=== PATIENT | male | born 1995 | race Caucasian/White ===

== ENCOUNTER 2018-09-17 19:58 | Emergency (ER) | payer SELFPAY ==
[2018-09-17 20:31] LABS: Absolute Lymphocytes (CBC) 2.9 K/uL (0.7-4.9); Absolute Monocytes 0.7 K/uL (0.1-1.3); Basophils % 0.9 % (0-1.3); Eosinophils % 1.6 % (0-4.4); Hematocrit 41.7 % (39.6-49.0); Lymphocytes % 32.9 % (15.3-44.8); MPV 8.4 fL (7.6-11.3); RBC Red Blood Cell Count 4.75 M/uL (4.33-5.43)
[2018-09-17 21:07] LABS: Barbiturates NEGATIVE (NEGATIVE); Benzodiazepines NEGATIVE (NEGATIVE); Cocaine NEGATIVE (NEGATIVE); METHAMPHETAM NEGATIVE (NEGATIVE); Methadone NEGATIVE (NEGATIVE); Opiates NEGATIVE (NEGATIVE); Phencyclidine NEGATIVE (NEGATIVE); THC Cannibis NEGATIVE (NEGATIVE)
--- NOTE | 2018-09-17 21:21 | RAD REPORT ---
EXAM DESCRIPTION: Frances Single View09/17/2018 8:39 pm CLINICAL HISTORY: Chest pain COMPARISON: none FINDINGS: The lungs appear clear of acute infiltrate. The heart is normal size IMPRESSION: No acute abnormalities displayed
[2018-09-17 22:00] LABS: Urine Blood NEGATIVE (NEG); Urine Glucose NEGATIVE (NEG); Urine Protein NEGATIVE (NEG); Urine pH 5.5 (5.0-7.0)
[2018-09-17 22:34] LABS: Protime INR 1.03
[2018-09-17 22:45] LABS: ALT/SGPT 42 U/L (12-78); AST/SGOT 30 U/L (15-37); Alkaline Phosphatase 53 U/L (45-117); BUN Blood Urea Nitrogen 21 mg/dL (7-18); Bicarbonate 23 mmol/L (21-32); Bilirubin Direct 0.1 mg/dL (0-0.2); Bilirubin Total 0.5 mg/dL (0.2-1.0); Glucose Level 91 mg/dL (74-106); Magnesium 2.3 mg/dL (1.8-2.4); Potassium 3.9 mmol/L (3.5-5.1); Protein, Total 7.3 g/dL (6.4-8.2); Sodium Level 141 mmol/L (136-145); Troponin (Emerg Dept Use Only) < 0.02 ng/mL (0.0-0.045)
[2018-09-17 22:59] LABS: NT PRO-BNP < 5 pg/mL (<125)
--- NOTE | 2018-09-17 23:03 | ER ---
Nurse's Notes [facility] Name: Harpreet Rodríguez Age: 23 yrs Sex: Male : 1995 Arrival Date: 09/17/2018 Time: 19:59 Bed 6 Private MD: Diagnosis: Chest pain Presentation: 09/17 20:00 Presenting complaint: Patient states: that he has been having chest pain with shortness fc of breath on and off x 6 months. Denies any nausea or vomiting. When the pain comes it lasts for approx 2 minutes. Hx of chest pain/heart damage of some sort due to a bad batch of drugs. Denies continued drug use. Transition of care: patient was not received from another setting of care. Onset of symptoms was September 17, 2018. Risk Assessment: Do you want to hurt yourself or someone else? Patient reports no desire to harm self or others. Initial Sepsis Screen: Does the patient meet any 2 criteria? No. Patient's initial sepsis screen is negative. Does the patient have a suspected source of infection? No. Patient's initial sepsis screen is negative. Care prior to arrival: None. 20:00 Method Of Arrival: EMS: [facility] 20:00 Acuity: REMIGIO 3 fc Triage Assessment: 20:00 General: Appears in no apparent distress. comfortable, Behavior is calm, cooperative, fc appropriate for age. Pain: Complains of pain in chest Pain currently is 0 out of 10 on a pain scale. at worst was 7 out of 10 on a pain scale. Quality of pain is described as aching, pressure, Is lasting a few minutes. EENT: No deficits noted. Neuro: Level of Consciousness is awake, alert, obeys commands, Oriented to person, place, time, situation, Appropriate for age. Cardiovascular: Reports chest pain, shortness of breath, Heart tones S1 S2 Capillary refill < 3 seconds Pulses are all present. Rhythm is regular Chest pain when he has it is a pressure that lasts approx 2 minutes. Respiratory: No deficits noted. GI: No deficits noted. : No deficits noted. Derm: Skin is pink, warm \T\ dry. Musculoskeletal: Circulation, motion, and sensation intact. Capillary refill < 3 seconds, Range of motion: intact in all extremities. Historical: - Allergies: 20:27 No Known Allergies; fc - Home Meds: 20:27 None [Active]; fc - PMHx: 20:27 Asthma; chest pain; drug abuse; Hypertension; fc - PSHx: 20:27 None; fc - Immunization history:: Last tetanus immunization: unknown, Flu vaccine is not up to date. - Social history:: Smoking status: Patient uses tobacco products, smokes one-half pack cigarettes per day, Patient uses alcohol, occasionally. Patient/guardian denies using street drugs, the patient reports quitting approximately .25 years ago. - Ebola Screening: : Patient negative for fever greater than or equal to 101.5 degrees Fahrenheit, and additional compatible Ebola Virus Disease symptoms Patient denies exposure to infectious person Patient denies travel to an Ebola-affected area in the 21 days before illness onset. Screenin:00 Abuse screen: Denies threats or abuse. Nutritional screening: No deficits noted. fc Tuberculosis screening: No symptoms or risk factors identified. Fall Risk None identified. Assessment: 20:15 General: Appears in no apparent distress. comfortable, Behavior is appropriate for age. lp1 Pain: Complains of pain in chest Pain currently is 0 out of 10 on a pain scale. Quality of pain is described as sharp. Neuro: Level of Consciousness is awake, alert, obeys commands, Oriented to person, place, time, situation. Cardiovascular: Patient's skin is warm and dry. Rhythm is sinus rhythm. Respiratory: Respiratory effort is even, unlabored, Respiratory pattern is regular, Breath sounds are clear bilaterally. GI: No signs and/or symptoms were reported involving the gastrointestinal system. : No signs and/or symptoms were reported regarding the genitourinary system. EENT: No signs and/or symptoms were reported regarding the EENT system. Derm: Skin is pink, warm \T\ dry. Musculoskeletal: Circulation, motion, and sensation intact. 21:15 Reassessment: Patient appears in no apparent distress at this time. No changes from lp1 previously documented assessment. Patient and/or family updated on plan of care and expected duration. Pain level reassessed. 22:15 Reassessment: Patient appears in no apparent distress at this time. Patient and/or lp1 family updated on plan of care and expected duration. Pain level reassessed. Patient is alert, oriented x 3, equal unlabored respirations, skin warm/dry/pink. Patient denies pain at this time. 23:11 Reassessment: Patient is alert, oriented x 3, equal unlabored respirations, skin lp1 warm/dry/pink. Patient denies pain at this time. Patient states feeling better. Vital Signs: 20:00 BP 144 / 99; Pulse 67; Resp 18; Temp 97.8(O); Pulse Ox 97% on R/A; Weight 77.11 kg (R); Height 5 ft. 8 in. (172.72 cm) (R); Pain 0/10; 21:29 BP 121 / 78; Pulse 67; Resp 16; Pulse Ox 98% on R/A; la1 22:30 BP 120 / 77; Pulse 65; Resp 20; Pulse Ox 98% on R/A; lp1 20:00 Body Mass Index 25.85 (77.11 kg, 172.72 cm) ED Course: 19:59 Patient arrived in ED. al2 20:00 Arm band placed on Patient placed in an exam room, on a stretcher. 20:00 Patient has correct armband on for positive identification. Placed in gown. Bed in low fc position. Call light in reach. school bus monitor on. Pulse ox on. NIBP on. 20:00 No provider procedures requiring assistance completed. 20:04 Delano White MD is Attending Physician. pkl 20:04 EKG done, by ED staff, reviewed by Delano White MD. 20:20 Inserted saline lock: 20 gauge in right antecubital area, using aseptic technique. lp1 Blood collected. 20:22 Triage completed. 20:23 Hannah Traylor, RN is Primary Nurse. lp1 20:32 X-ray completed. Portable x-ray completed in exam room. Patient tolerated procedure sg4 well. 20:39 XRAY Chest (1 view) In Process Unspecified. EDMS 23:11 IV discontinued, No redness/swelling at site. Pressure dressing applied. lp1 Administered Medications: No medications were administered Outcome: 23:03 Discharge ordered by . pkmiles 23:12 Discharged to home ambulatory. lp1 23:12 Condition: good 23:12 Discharge instructions given to patient, Instructed on discharge instructions, follow up and referral plans. Demonstrated understanding of instructions, follow-up care. 23:21 Patient left the ED. lp1 Signatures: Dispatcher [employer] EDMS Delano White MD MD pkBerta Brady RN RN Hannah Traylor, RN RN lp1 Scott Gonzalez, RN RN la1 Alix, Reena Renner, [place] [facility] [place]
--- NOTE | 2018-09-17 23:03 | EDPHYS ---
Physician Documentation [facility] Name: Harpreet Rodríguez Age: 23 yrs Sex: Male : 1995 Arrival Date: 09/17/2018 Time: 19:59 Bed 6 Private MD: ED Physician Delano White HPI: 09/17 20:52 This 23 yrs old Male presents to ER via EMS with unknown complaint. pkl 20:52 The patient or guardian reports chest pain that is located primarily in the substernal pkl area. The pain does not radiate. Associated signs and symptoms: Pertinent positives: shortness of breath. The chest pain is described as sharp. The patient has experienced similar episodes in the past, multiple times. Historical: - Allergies: 20:27 No Known Allergies; fc - Home Meds: 20:27 None [Active]; fc - PMHx: 20:27 Asthma; chest pain; drug abuse; Hypertension; fc - PSHx: 20:27 None; fc - Immunization history:: Last tetanus immunization: unknown, Flu vaccine is not up to date. - Social history:: Smoking status: Patient uses tobacco products, smokes one-half pack cigarettes per day, Patient uses alcohol, occasionally. Patient/guardian denies using street drugs, the patient reports quitting approximately .25 years ago. - Ebola Screening: : Patient negative for fever greater than or equal to 101.5 degrees Fahrenheit, and additional compatible Ebola Virus Disease symptoms Patient denies exposure to infectious person Patient denies travel to an Ebola-affected area in the 21 days before illness onset. ROS: 20:52 Eyes: Negative for injury, pain, redness, and discharge, ENT: Negative for injury, pkl pain, and discharge, Neck: Negative for injury, pain, and swelling. 20:52 Cardiovascular: Positive for chest pain. 20:52 Respiratory: Positive for shortness of breath. 20:52 Abdomen/GI: Negative for abdominal pain, nausea, vomiting, and diarrhea. 20:52 Back: Negative for acute changes. 20:52 : Negative for urinary symptoms. 20:52 MS/extremity: Negative for acute changes. 20:52 Skin: Negative for rash. 20:52 Neuro: Negative for altered mental status. Exam: 20:52 Head/Face: Normocephalic, atraumatic. Eyes: Pupils equal round and reactive to light, pkl extra-ocular motions intact. Lids and lashes normal. Conjunctiva and sclera are non-icteric and not injected. Cornea within normal limits. Periorbital areas with no swelling, redness, or edema. ENT: Nares patent. No nasal discharge, no septal abnormalities noted. Tympanic membranes are normal and external auditory canals are clear. Oropharynx with no redness, swelling, or masses, exudates, or evidence of obstruction, uvula midline. Mucous membranes moist. Neck: Trachea midline, no thyromegaly or masses palpated, and no cervical lymphadenopathy. Supple, full range of motion without nuchal rigidity, or vertebral point tenderness. No Meningismus. Chest/axilla: Normal chest wall appearance and motion. Nontender with no deformity. No lesions are appreciated. Cardiovascular: Regular rate and rhythm with a normal S1 and S2. No gallops, murmurs, or rubs. Normal PMI, no JVD. No pulse deficits. Respiratory: Lungs have equal breath sounds bilaterally, clear to auscultation and percussion. No rales, rhonchi or wheezes noted. No increased work of breathing, no retractions or nasal flaring. Abdomen/GI: Soft, non-tender, with normal bowel sounds. No distension or tympany. No guarding or rebound. No evidence of tenderness throughout. Back: No spinal tenderness. No costovertebral tenderness. Full range of motion. Skin: Warm, dry with normal turgor. Normal color with no rashes, no lesions, and no evidence of cellulitis. MS/ Extremity: Pulses equal, no cyanosis. Neurovascular intact. Full, normal range of motion. Neuro: Awake and alert, GCS 15, oriented to person, place, time, and situation. Cranial nerves II-XII grossly intact. Motor strength 5/5 in all extremities. Sensory grossly intact. Cerebellar exam normal. Normal gait. Vital Signs: 20:00 BP 144 / 99; Pulse 67; Resp 18; Temp 97.8(O); Pulse Ox 97% on R/A; Weight 77.11 kg (R); fc Height 5 ft. 8 in. (172.72 cm) (R); Pain 0/10; 21:29 BP 121 / 78; Pulse 67; Resp 16; Pulse Ox 98% on R/A; la1 22:30 BP 120 / 77; Pulse 65; Resp 20; Pulse Ox 98% on R/A; lp1 20:00 Body Mass Index 25.85 (77.11 kg, 172.72 cm) fc MDM: 20:05 Patient medically screened. pkl 23:02 Data reviewed: vital signs, nurses notes, lab test result(s), EKG, radiologic studies, pkl plain films. 09/17 20:18 Order name: Basic Metabolic Panel; Complete Time: 23:00 pkl 09/17 20:18 Order name: CBC with Diff; Complete Time: 20:57 pkl 24 20:18 Order name: LFT's; Complete Time: 23:00 pkl 24 20:18 Order name: Magnesium; Complete Time: 23:00 pkl 24 20:18 Order name: NT PRO-BNP; Complete Time: 23:00 pkl 24 20:18 Order name: PT-INR; Complete Time: 22:57 pkl 24 20:18 Order name: Troponin (emerg Dept Use Only); Complete Time: 23:00 pkl 24 20:18 Order name: XRAY Chest (1 view); Complete Time: 21:37 pkl 24 20:18 Order name: EKG; Complete Time: 20:19 pkl 24 20:18 Order name: Cardiac monitoring; Complete Time: 20:40 pkl 24 20:18 Order name: EKG - Nurse/Tech; Complete Time: 20:40 pkl 24 20:18 Order name: D-Dimer; Complete Time: 22:57 pkl 24 20:18 Order name: UDS; Complete Time: 21:08 pkl 24 20:53 Order name: Urine Dipstick--Ancillary (enter results); Complete Time: 22:13 em1 09/17 20:18 Order name: IV Saline Lock; Complete Time: 20:40 pkl 24 20:18 Order name: Labs collected and sent; Complete Time: 20:40 pkl 24 20:18 Order name: O2 Per Protocol; Complete Time: 20:40 pkl 24 20:18 Order name: O2 Sat Monitoring; Complete Time: 20:41 pkl Administered Medications: No medications were administered Disposition: 09/17/18 23:03 Discharged to Home. Impression: Chest pain. - Condition is Stable. - Medication Reconciliation Form, Thank You Letter, Antibiotic Education, Prescription Opioid Use form. - Follow up: Private Physician; When: 2 - 3 days; Reason: Re-evaluation by your physician. - Problem is new. - Symptoms are resolved. Signatures: Dispatcher [employer] Delano Villavicencio MD MD pkl Chretien, Felicia RN RN fc Hannah Traylor RN RN lp1 Corrections: (The following items were deleted from the chart) 23:21 23:03 09/17/2018 23:03 Discharged to Home. Impression: Chest pain. Condition is Stable. lp1 Forms are Medication Reconciliation Form, Thank You Letter, Antibiotic Education, Prescription Opioid Use. Follow up: Private Physician; When: 2 - 3 days; Reason: Re-evaluation by your physician. Problem is new. Symptoms are resolved. pkl
--- NOTE | 2018-09-18 10:03 | EKG ---
Test Date: 2018-09-17 Test Time: 20:04:35 [place]inier Tender: KENDELL MEASUREMENT RESULTS: Intervals: Rate: 72 ID: [id number] QRSD: 90 QT: 378 QTc: 413 [place]: P: 39 ID: [id number] QRS: -9 T: 0 INTERPRETIVE STATEMENTS: Normal sinus rhythm Minimal voltage criteria for LVH, may be normal variant Borderline ECG No previous ECG available for comparison Electronically Signed On 09-18-18 09:54:34 [employer] by Francisco Garces
== END 2018-09-17 23:21 | disposition home or self-care (01) ==
LOC: ER 19:58
DX: R07.9 Chest pain, unspecified (principal); F17.210 Nicotine dependence, cigarettes, uncomplicated
CPT/HCPCS: 36415; 71045; 80048; 80076; 80307; 81003; 83735; 83880; 84484; 85025; 85379; 85610; 93005; 99284